=== PATIENT | female | born 1970 | race African-American/Black ===

== ENCOUNTER 2017-10-14 18:49 | Emergency (ER) | payer OTHER ==
[~2017-10-14] VITALS: Ht 162.6 cm; Wt 79.8 kg
[2017-10-14 18:57] VITALS: Ht 162.6 cm; Wt 79.8 kg
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
[2017-10-14] MEDS ORDERED: HYDROCODONE/APAP (5/325) TAB PO ONE (21:30)
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
--- NOTE | 2017-10-14 22:10 | RADRPT ---
PROCEDURE: CT Cervical Spine without contrast. CLINICAL INDICATION: Trauma TECHNIQUE: Multiple axial cuts at 2 mm intervals through the cervical spine with coronal and sagit rizwana reformats were obtained without contrast. DICOM images are available. One or more of the following dose reduction techniques were utilized: 1.) Automated exposure control 2.) Adjustment of the mA +/- kV according to patient's size 3.) Use of iterative reconstruction technique. CT D I 22 mCi. Dose 465 mCi per centimeter COMPARISON: No prior studies are available for comparison. FINDINGS: There is loss of normal lordosis with mild kyphotic deformity centered on C4. No step-off or prevert ebral soft tissue swelling is detected. Vertebral bodies have normal height. There is no fracture. T here is moderate narrowing of C5-C6. Noted is spondylosis at C6-C7 with a Schmorl's node on the supe rior aspect of C7. The disc heights are maintained. There is mild posterior ridging at C5-C6. Pedicl es and posterior elements are intact with no fracture. Noted is a broad-based disc herniation at C4- C5 measuring 2.5 mm in transverse diameter. No other disc herniation is seen.. There is no central o r foraminal stenosis. IMPRESSION: No fracture or step-off. Kyphotic deformity compatible with muscular spasm or sprain. Degenerative c hanges as detailed above. .Hilton Markham MD, Date Time Electronically viewed and signed by .Hilton Markham MD, on 10/14/2017 22:09 .A/
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
[2017-10-14] MEDS ORDERED: NAPR-260 PO (22:58)
[2017-10-14] MEDS ORDERED: FAMO-96 PO (22:58)
[2017-10-14] MEDS ORDERED: HYDR-906 PO (22:58)
[2017-10-14 23:42] LABS: URINE BLOOD (Dip) POC Trace-intact (NEGATIVE)
[2017-10-15] VITALS: BP 142/70; PULSE 69; RESP 22; TEMP 98.2
== END 2017-10-14 23:58 | disposition home or self-care (01) ==
LOC: FTE 18:49
DX: M62.838 Other muscle spasm (principal); R51 Headache
CPT/HCPCS: 70450; 72125; 73030; 81003; Z7502; Z7610